=== PATIENT | female | born 1955 | race Caucasian/White ===

== ENCOUNTER 2018-01-08 23:18 | Emergency (ER) | payer OTHER ==
[2018-01-08 23:32] VITALS: BP 158/98; PULSE 86; O2SAT 99
[2018-01-08] MEDS: NORCO 5/325 MG PO ONE (23:43)
[2018-01-08] MEDS ORDERED: NORCO 5/325 MG ONE (23:43)
--- NOTE | 2018-01-08 23:43 | ERPHSYRPT ---
- History of Present Illness Time Seen by Provider: 01/08/18 23:34 Source: patient Exam Limitations: no limitations Patient Subjective Stated Complaint: Pt arrives to ER with c/o fall while walking dogs, became tripped up and fell backwards landing on right hand, breaking fall from slightly hitting back of head and buttocks. Pt denies LOC or any other injuries other than right hand. Triage Nursing Assessment: Minor swelling and abrasions to right palm of hand. FROM and sensation. Physician History: This is a 62-year-old white female she arrives with complaint of pain in her right hand and thumb after falling while walking the dogs at approximately 9:30 tonight. She states that she was pulled forward by her dog she fell she did not injure herself other than her right hand she is having pain with movement of her right thumb and pain over the right thenar eminence. She denies any wrist pain no elbow pain shoulder pain she denies any other injury. Past medical history the patient denies. 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 Social history positive occasional alcohol use Quality: constant, aching Severity of Pain-Max: moderate Severity of Pain-Current: moderate Extremities Pain Location: hand: right Modifying Factors: Improves With: nothing Associated Symptoms: none Allergies/Adverse Reactions: Penicillins Allergy (Mild, Verified 01/08/18 23:32) Rash Home Medications: Famotidine 20 mg [Pepcid 20 MG] 20 mg PO DAILY 01/08/18 [History] Glimepiride 2 mg [Amaryl 2 MG] 2 mg PO DAILY 01/08/18 [History] Levothyroxine Sodium 112 Mcg [Synthroid 112 Mcg] 112 mcg PO DAILY 01/08/18 [History] Metformin HCl [Metformin HCl] 1,000 mg PO BID 01/08/18 [History] Sitagliptin Phosphate [Januvia] 100 mg PO DAILY 01/08/18 [History] Hx Tetanus, Diphtheria Vaccination/Date Given: (unknown) - Review of Systems Constitutional: No Fever, No Chills Eyes: No Symptoms Ears, Nose, & Throat: No Symptoms Respiratory: No Cough, No Dyspnea Cardiac: No Chest Pain, No Edema, No Syncope Abdominal/Gastrointestinal: No Abdominal Pain, No Nausea, No Vomiting, No Diarrhea Genitourinary Symptoms: No Dysuria Musculoskeletal: Other (right hand pain pain with moving right thumb) Skin: Other (small abrasions less than 1 cm right hand thenar eminence) Neurological: No Dizziness, No Focal Weakness, No Sensory Changes Psychological: No Symptoms Endocrine: No Symptoms All Other Systems: Reviewed and Negative - Past Medical History Pertinent Past Medical History: Yes Neurological History: No Pertinent History ENT History: No Pertinent History Cardiac History: No Pertinent History Respiratory History: No Pertinent History Endocrine Medical History: No Pertinent History Musculoskeletal History: No Pertinent History GI Medical History: No Pertinent History History: No Pertinent History Psycho-Social History: No Pertinent History Female Reproductive Disorders: No Pertinent History - Past Surgical History Past Surgical History: Yes Neuro Surgical History: No Pertinent History Cardiac: No Pertinent History Respiratory: No Pertinent History Gastrointestinal: Appendectomy Genitourinary: No Pertinent History Musculoskeletal: No Pertinent History Female Surgical History: Tubal Ligation Other Surgical History: 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 - Social History Smoking Status: Never smoker Exposure to second hand smoke: No Drug Use: none Patient Lives Alone: No - Female History Hx Now: No - Nursing Vital Signs Nursing Vital Signs: Initial Vital Signs Temperature 98.3 F 01/08/18 23:25 Pulse Rate 86 01/08/18 23:25 Respiratory Rate 16 01/08/18 23:25 Blood Pressure 158/98 01/08/18 23:25 O2 Sat by Pulse Oximetry 99 01/08/18 23:25 Pain Scale Pain Intensity 9 - Physical Exam General Appearance: alert Eyes, Ears, Nose, Throat Exam: moist mucous membranes Neck Exam: non-tender, supple Cardiovascular/Respiratory Exam: chest non-tender, normal breath sounds, regular rate/rhythm, no respiratory distress Abdominal Exam: non-tender, No guarding Back Exam: normal inspection, No vertebral tenderness Shoulder Exam: normal inspection, non-tender, no evidence of injury, normal ROM Elbow/Forearm Exam: normal inspection, non-tender, no evidence of injury, normal ROM Wrist Exam: normal inspection, non-tender, no evidence of injury, normal ROM Hand Exam: No normal inspection (right hand tender with palpation over right thenar eminence, decreased range of motion right thumb secondary to pain very small abrasion overlying the right thenar eminence, good capillary refill all fingers sensation intact to all fingers) Neuro/Tendon Exam: normal sensation, normal motor functions Mental Status Exam: alert, oriented x 3, cooperative Skin Exam: normal color, warm, dry SpO2 Interpretation: normal (99%) SpO2: 99 Oxygen Delivery: Room Air - Radiology Exams Right Hand X-ray Interpretation: Interpreted by me, Negative, No Fracture, No Subluxation Ordered Tests: Active Orders 24 hr Category Date Time Status Splint STAT Care 01/09/18 00:04 Active Wound Care STAT Care 01/09/18 00:04 Active HAND (MINIMUM 3 VIEWS) Stat Exams 01/08/18 23:38 Taken Medication Summary Discontinued Medications Generic Name Dose Route Start Last Admin Trade Name Richard PRN Reason Stop Dose Admin Hydrocodone Bitart/Acetaminophen 1 tab 01/08/18 23:38 01/08/18 23:43 Moore 5/325 Mg PO 01/08/18 23:39 1 tab STAT ONE Administration Hydrocodone Bitart/Acetaminophen Confirm 01/08/18 23:43 Moore 5/325 Mg Administered 01/08/18 23:44 Dose 1 tab .ROUTE .STK-MED ONE Bacitracin 0.9 gm 01/09/18 00:04 Baciguent Packet TP 01/09/18 00:05 STAT ONE - Progress Progress: improved Progress Note: 01/09/18 00:06 Patient with moderate amount of pain in her right thumb and over the right thenar eminence. X-ray of the right hand negative fracture negative dislocation. Will have nurse apply right thumb spica. Patient was given Moore here in the emergency room for pain will write a small amount of Moore for pain and reviewed inspect did not see any outstanding prescriptions. Patient denies any problem with narcotics. - Departure Time of Disposition: 00:07 Departure Disposition: Home Clinical Impression: Right hand pain, Strain of right thumb Contusion of right hand Qualifiers: Encounter type: initial encounter Qualified Code(s): S60.221A - Contusion of right hand, initial encounter Condition: Fair Critical Care Time: No Referrals: ADRIEN CRUZ [Primary Care Provider] - Instructions: Hand Pain (DC) Additional Instructions: Return home. Ice and elevate your right hand 24-48 hours. Moore as prescribed. Follow-up with your family symptoms are worse, no better in 48 hours or persist longer than 72 hours. Return for acute distress or for severe symptoms. Prescriptions: Hydrocodone/Acetaminophen [Moore 5-325 Tablet] 1 tab PO Q4-6HPRN PRN #12 tablet MDD 6 tablets PRN Reason: pain
[2018-01-09] MEDS: BACIGUENT PACKET TP ONE (00:21)
[2018-01-09] MEDS ORDERED: BACIGUENT PACKET ONE (05:31)
--- NOTE | 2018-01-09 09:03 | XRAY ---
Indication: Thumb pain following fall. Comparison: None 3 views of the left hand obtained. No bony, articular, or soft tissue abnormalities.
== END 2018-01-09 00:25 | disposition home or self-care (01) ==
LOC: ED 23:18
PROC: 2W3CX1Z Immobilization of Right Lower Arm using Splint (ICD-10-PCS; principal; 2018-01-09)
DX: S60.221A Contusion of right hand, initial encounter (principal); S56.011A Strain of flexor muscle, fascia and tendon of right thumb at forearm level, initial encounter; M79.641 Pain in right hand; W01.10XA Fall on same level from slipping, tripping and stumbling with subsequent striking against unspecified object, initial encounter; Y93.K1 Activity, walking an animal; Z79.899 Other long term (current) drug therapy
CPT/HCPCS: 29126; 73130; 99283; A9270-GY